=== PATIENT | male | born 1960 | race Caucasian/White ===

== ENCOUNTER 2022-02-04 22:23 | Emergency (ER) | payer MEDICAID, SELFPAY ==
[2022-02-04 22:24] VITALS: BP 193/101; PULSE 90; RESP 16; TEMP 36.7; O2SAT 98; BMI 26.6
--- NOTE | 2022-02-04 22:36 | EKG12_ITS ---
Test Reason : [facility] [place] Pressure : / mmHG Vent. Rate : 093 BPM Atrial Rate : 093 BPM P-R Int : 134 ms QRS Dur : 086 ms QT Int : 338 ms P-R-T Axes : 078 074 057 degrees QTc Int : 420 ms Normal sinus rhythm Normal ECG Confirmed by ANIKA FRANZ, SCAR ([id number]), videotape editor OLGA SHARMA ([id number]) on 02/05/2022 11:39:01 AM Referred By: Confirmed By:SCAR DONALDSON MD
--- NOTE | 2022-02-04 22:40 | EDS_ITS ---
HPI HPI - Psych History of Present Illness Chief Complaint: Mental Health Informant: patient and EMS Narrative Narrative: 11-year-old male presenting to the emergency department with EMS voluntarily after expressing some homicidal ideation. Patient appears to have had some longstanding depression that has gone untreated. He lost his 10 years ago. He lost 3 of his brothers that he found . His daughter of a drug overdose about 2 months ago. Most recently somebody sent him a video of his girlfriend of 7 years having sex with a group of people while unresponsive from drug use. He made homicidal threats against that individual. The police made contact tonight and the patient admitted to using some methamphetamines earlier. He states that he is very tearful cannot calm himself down and needs help with his depression. PFSH PFSH Home Medications diazepam 2 mg tablet 5 mg PO TID PRN PRN Muscle Spasm ##10 05/30/14 [Rx Last T aken Unknown] naproxen 500 mg tablet 500 mg PO BID PRN ##20 05/30/14 [Rx Last Taken Unknown] oxycodone-acetaminophen 5 mg-325 mg tablet 1 - 2 tab PO Q4H PRN PRN Pain ##30 05/30/14 [Rx Last Taken Unknown] diazepam 2 mg tablet 2 mg PO TID PRN PRN Vertigo ##10 06/08/14 [Rx Last Taken Unknown] oxycodone-acetaminophen 10 mg-325 mg tablet (Percocet) 1 tab PO Q6H PRN PRN Pain ##20 06/08/14 [Rx Last Taken Unknown] oxycodone-acetaminophen 5 mg-325 mg tablet 1 - 2 tab PO Q4H PRN PRN Pain ##12 06/20/14 [Rx Last Taken Unknown] oxycodone-acetaminophen 5 mg-325 mg tablet 1 - 2 tab PO Q6H PRN PRN Pain ##12 08/27/13 [Rx Last Taken Unknown] naproxen 500 mg tablet 500 mg PO BID ##20 08/02/14 [Rx Last Taken Unknown] oxycodone-acetaminophen 5 mg-325 mg tablet 1 - 2 tab PO Q4H PRN PRN Pain ##20 08/02/14 [Rx Last Taken Unknown] Allergy/AdvReac Type Severity Reaction Status Date / Time morphine Allergy Other Verified 10/03/20 12:56 Social History (Updated 02/04/22 @ 22:[address] Loi Holt, DO) current gender identity: male Smoking Status: Never smoker substance use type: amphetamines ROS ROS ED Constitutional Constitutional ED: Denies chills or weight loss Eyes Eyes: Denies change in vision or diplopia ENT ENT ED: Denies ear pain, rhinorrhea or sore throat Cardiovascular Cardiovascular: Denies chest pain, orthopnea, palpitations or racing heartbeat Respiratory/Chest Respiratory/Chest: Denies cough, dyspnea or orthopnea Gastrointestinal Gastrointestinal: Denies abdominal pain, diarrhea, nausea or vomiting Genitourinary Genitourinary ED: Denies dysuria, hematuria or urinary frequency Musculoskeletal Musculoskeletal: Denies arthralgias or myalgias Integumentary Denies abscess or rash Neurologic Neurologic: Denies headache(s) or weakness Psychiatric Psychiatric: Reports depression and other Details: Homicidal thoughts ; Denies anxiety, suicidal ideation or suicidal thoughts Endocrine Endocrinology: Denies polydipsia, polyphagia or polyuria Allergic/Immunologic Allergic/Immunologic ED: Denies mouth swelling, tongue swelling or urticaria EXAM Physical Exam Const Vital Signs: 02/04/22 22:24 Temperature 98.1 F Temperature Source Temporal Pulse Rate 90 Respiratory Rate 16 Blood Pressure 193/101 H Blood Pressure Mean 131 Pulse Ox 98 Oxygen Delivery Method Room Air Positive well nourished and well developed General Appearance ED: well developed HEENT Reports normocephalic, head/scalp atraumatic and moist mucous membranes Eyes PERRL and EOMs intact bilaterally Neck no lymphadenopathy, supple and no JVD Resp normal respiratory effort and clear to auscultation bilaterally Cardio regular rate, regular rhythm and no murmurs GI normal to inspection, nondistended, normoactive bowel sounds and non-tender Palpation: soft Back/Spine no CVA tenderness and normal ROM Extremity normal to inspection General Extremety ED: Negative for edema General Extremity: Negative for edema Neuro oriented x3 and CN's II-XII intact bilaterally Sensorium / Orientation: alert Motor Exam: strength 5/5 throughout Psych mental status grossly normal Appearance: grossly normal Activity / Motor Behavior: avoids eye contact Speech: excessive, rapid and pressured Mood & Affect: depressed, sad and tearful Thought Process: perseverating Thought Content: No suicidality, homicidality, No delusion(s) and No hallucination(s) Attention / Concentration: attention grossly intact Memory / Cognition: memory grossly intact Insight: questionable Judgement: questionable Skin no rashes or lesions noted and no wounds MDM MDM MDM Narrative Medical decision making narrative: Patient will be medically cleared. We will have crisis evaluate the patient. EKG Initial EKG: Attestation: I personally reviewed and interpreted this EKG as follows: Comments: Normal sinus rhythm with a ventricular rate of 93 bpm. Discharge Plan Triage Chief Complaint: Mental Health ED Provider: Loi Holt Dx/Rx/DC Orders Clinical Impression: Methamphetamine use, Homicidal ideation, Depression Prescriptions: No Action oxycodone-acetaminophen 1 TABLET tablet 1 - 2 tab PO Q4H PRN PRN (Reason: Pain) Qty: 30 0RF diazepam 2 MG tablet 5 mg PO TID PRN PRN (Reason: Muscle Spasm) Qty: 10 0RF naproxen 500 MG tablet 500 mg PO BID PRN Qty: 20 0RF oxycodone-acetaminophen [Percocet] 1 EACH tablet 1 tab PO Q6H PRN PRN (Reason: Pain) Qty: 20 0RF diazepam 2 MG tablet 2 mg PO TID PRN PRN (Reason: Vertigo) Qty: 10 0RF oxycodone-acetaminophen 1 TABLET tablet 1 - 2 tab PO Q4H PRN PRN (Reason: Pain) Qty: 12 0RF oxycodone-acetaminophen 1 TABLET tablet 1 - 2 tab PO Q6H PRN PRN (Reason: Pain) Qty: 12 0RF Rx Instructions: causes drowsiness oxycodone-acetaminophen 1 TABLET tablet 1 - 2 tab PO Q4H PRN PRN (Reason: Pain) Qty: 20 0RF naproxen 500 MG tablet 500 mg PO BID Qty: 20 0RF Primary Care Provider: Care Physician,No Primary Referrals: Care Physician,No Primary [Primary Care Provider] -
[2022-02-04] MEDS: LORazepam 1 MG Tablet PO (22:50)
--- NOTE | 2022-02-04 22:54 | ED.RN ---
Patient refused to remove clothes and get in gown at this time. Explained to patient that it is our protocol even though he is not suicidal. Pt. states there is no need to remove my clothes, what are you going to do hold me down?. Will try again after ativan begins to work.
[2022-02-04 22:56] LABS: Absolute Lymphocyte Count 2.47 X10^3/uL (0.83-4.51); Absolute Neutrophil Count 4.4 X10^3/uL (2.0-7.7); Basophil# 0.06 X10^3/uL; Basophil% 0.8 % (0-1); Eosinophil# 0.05 X10^3/uL; Eosinophils% 0.7 % (0-5); Hematocrit 51.2 % (40-54); Hemoglobin 16.9 g/dL (13.0-16.5); Lymphocyte # 2.47 X10^3/ul (0.83-4.51); Lymphocyte % 32.4 % (19-41); Mean Corpuscular Hgb 29.2 pg (27.0-32.0); Mean Corpuscular Volume 88.6 fL (80-94); Mean Platelet Vol. 9.5 fl (6.2-12.0); Monocyte# 0.59 X10^3/uL; Monocyte% 7.7 % (0-10); NRBC Flagged by Analyzer 0 % (0-5); Neutrophil # 4.43 X10^3/uL (2.7-7.7); Neutrophil % 58.1 % (47-70); Platelet Count 335 K/mm3 (150-450); RBC Distribution Width CV 13.7 % (11.6-14.6); RBC Distribution Width SD 44.1 fl (35.1-43.9); Red Blood Count 5.78 M/mm3 (4.6-6.2); White Blood Count 7.6 K/mm3 (4.4-11.0)
[2022-02-04 23:13] LABS: ALB/GLOB Ratio 1.2 RATIO (0.9-2.4); AST(SGOT) 18 U/L (15-37); Alanine Aminotransfer ALT/SGPT 39 U/L (16-61); Albumin, Serum 4.4 g/dL (3.2-5.0); Alkaline Phosphatase 75 U/L (45-117); Anion Gap 7 (5-15); BUN 15 mg/dL (7-18); BUN/Creat Ratio 14.6 RATIO (10-20); Calcium,Total 9.2 mg/dL (8.5-10.1); Chloride 105 mmol/L (98-107); Creatinine, Serum 1.03 mg/dL (0.70-1.30); EST Glomerular Filtration Rate 78 mL/min (>60); Est Glom Filt Rate - Afr Amer 95 mL/min (>60); Estimated Creatinine Clearance 84.76 ml/min; Globulin 3.8 g/dL (2.2-4.2); Glucose 100 mg/dL (74-106); Potassium 3.5 mmol/L (3.5-5.1); Protein, Total 8.2 g/dL (6.4-8.2); Sodium Level 138 mmol/L (136-145)
[2022-02-04 23:34] LABS: Amphetamine Urine VISTA POSITIVE (<1000 ng/mL); Barbiturate Urine VISTA NEGATIVE (< 200 ng/mL); Benzodiazepine Urine VISTA NEGATIVE (< 200 ng/mL); Cocaine Urine VISTA NEGATIVE (< 300 ng/mL); Ecstacy Urine VISTA POSITIVE (< 500 ng/mL); Methadone Urine VISTA NEGATIVE (< 300 ng/mL); PCP Urine VISTA NEGATIVE (< 25 ng/mL); THC Urine VISTA POSITIVE (< 50 ng/mL); Vista UDS pH Range 4
--- NOTE | 2022-02-05 01:09 | NURSING ---
CRISIS CALLED AT 0107
== END 2022-02-05 02:57 | disposition home or self-care (01) ==
PROVIDERS: Emergency Provider Emergency Medicine; Visit Provider Emergency Medicine
DX: F15.90 Other stimulant use, unspecified, uncomplicated (principal); F32.A Depression, unspecified; R45.850 Homicidal ideations
CPT/HCPCS: 80053; 80307; 82077; 85025; 93005; 99285

== ENCOUNTER 2022-02-26 17:33 | Emergency (ER) | payer MEDICARE, MEDICAID, SELFPAY ==
[2022-02-26 17:33] VITALS: BP 143/100; PULSE 94; RESP 17; TEMP 36.5; O2SAT 100; BMI 26.6
--- NOTE | 2022-02-26 18:01 | US_ITS ---
STUDY: SCROTUM ULTRASOUND REASON FOR EXAM: Male, 62 years old. right testicular pain and swelling TECHNIQUE: Ultrasound evaluation of the scrotum was performed with color Doppler and static duron-scale imaging. COMPARISON: None. FINDINGS: RIGHT TESTICLE INTRATESTICULAR: There is a normal size of the right testicle. The right testicle measures 4.6 x 3.4 x 2.4 cm. There is mild heterogeneous echotexture. There is normal arterial and normal venous vascularity. There is no demonstrated right testicular mass or cyst. EXTRATESTICULAR: The epididymis is normal in size. The epididymis head measures 1.4 x 0.7 x 0.6 cm. There is normal vascularity of the epididymis. There is no demonstrated epididymal cystic structure. There is no demonstrated hydrocele. There is no demonstrated varicocele. There is no demonstrated extratesticular mass or cyst. Right scrotal wall 0.3 cm. LEFT TESTICLE INTRATESTICULAR: There is a normal size of the left testicle. The left testicle measures 4.6 x 3.3 x 2.1 cm. There is a homogenous echotexture. There is normal arterial and normal venous vascularity. There is no demonstrated left testicular mass or cyst. EXTRATESTICULAR: The epididymis is normal in size. The epididymis head measures 1.0 x 0.8 x 0.8 cm cm. There is normal vascularity of the epididymis. There is epididymal cyst 0.3 x 0.3 x 0.2 cm. There is a small demonstrated hydrocele. There is no demonstrated varicocele. There is no demonstrated extratesticular mass or cyst. Left scrotal wall 0.3 cm. In the lower abdominal wall on the right there are findings raising question of abdominal wall hernia. US/Testicular with Arterial Flow IMPRESSION: Mild heterogeneity of the right testis which could represent orchitis. Left epididymal cyst 0.3 x 0.3 x 0.2 cm. Question right lower abdominal wall hernia. This can be further evaluated with CT examination if clinically warranted. Small left hydrocele. Electronically Signed: John Crum MD, BHARGAVI at 19:20 EDT ,
[2022-02-26 18:27] LABS: Red Blood Cells-Urine 0 SEEN /hpf (0-5); White Blood Cells 0 SEEN /hpf (0-5)
[2022-02-26 18:30] LABS: Color, Urine Yellow (Yellow); Glucose, Dipstick Normal (Normal); Ketone-Dipstick 5 mg/dl (Negative); Leukocyte Esterase-Dipstick Negative /ul (Negative); Nitrite-Dipstick Negative (Negative); Occult Blood-Urine Negative /ul (Negative); Protein-Dipstick 30 mg/dl (Negative); Specific Gravity, Urine 1.025 (1.002-1.030); Urine Bilirubin Dipstick Negative (Negative); Urine Clarity Clear (Clear); Urine Urobilinogen Normal (Normal)
[2022-02-26] MEDS: HYDROmorphone 1 MG/ML Syringe IV (18:33)
[2022-02-26 18:36] LABS: Absolute Lymphocyte Count 2.43 X10^3/uL (0.83-4.51); Absolute Neutrophil Count 2.4 X10^3/uL (2.0-7.7); Basophil# 0.03 X10^3/uL; Basophil% 0.6 % (0-1); Eosinophil# 0.04 X10^3/uL; Eosinophils% 0.7 % (0-5); Hematocrit 45.7 % (40-54); Hemoglobin 15.3 g/dL (13.0-16.5); Lymphocyte # 2.43 X10^3/ul (0.83-4.51); Lymphocyte % 45.4 % (19-41); Mean Corp Hgb Conc 33.5 g/dL (32-36); Mean Corpuscular Hgb 29.3 pg (27.0-32.0); Mean Corpuscular Volume 87.4 fL (80-94); Mean Platelet Vol. 9.2 fl (6.2-12.0); Monocyte# 0.47 X10^3/uL; Monocyte% 8.8 % (0-10); NRBC Flagged by Analyzer 0 % (0-5); Neutrophil # 2.38 X10^3/uL (2.7-7.7); Neutrophil % 44.5 % (47-70); Platelet Count 275 K/mm3 (150-450); RBC Distribution Width CV 13.7 % (11.6-14.6); RBC Distribution Width SD 43.8 fl (35.1-43.9); Red Blood Count 5.23 M/mm3 (4.6-6.2); White Blood Count 5.4 K/mm3 (4.4-11.0)
[2022-02-26 18:48] LABS: Bacteria 1+ /hpf (None Seen); Squamous Epithelial Cells - UA 0-5 SEEN /hpf (0-5)
[2022-02-26 18:49] LABS: Mucous, Urine 4+ /hpf (<or=2+)
[2022-02-26 18:49] LABS: Anion Gap 7 (5-15); BUN 13 mg/dL (7-18); BUN/Creat Ratio 12.6 RATIO (10-20); Calcium,Total 8.9 mg/dL (8.5-10.1); Chloride 106 mmol/L (98-107); Creatinine, Serum 1.03 mg/dL (0.70-1.30); EST Glomerular Filtration Rate 78 mL/min (>60); Est Glom Filt Rate - Afr Amer 95 mL/min (>60); Estimated Creatinine Clearance 83.71 ml/min; Glucose 105 mg/dL (74-106); Potassium 3.5 mmol/L (3.5-5.1); Sodium Level 138 mmol/L (136-145)
[2022-02-26 19:02] LABS: Lactic Acid 0.9 mmol/L (0.4-1.9)
--- NOTE | 2022-02-26 19:24 | CT_ITS ---
STUDY: CT Abdomen And Pelvis W/ Contrast Injection 02/26/2022 7:58 PM REASON FOR EXAM: Male, 62 years old. Abdominal pain lower abdominal wall hernia/pain, right Individualized dose optimization techniques were used for this CT. COMPARISON: None. TECHNIQUE: CT Abdomen And Pelvis W/ Contrast Injection IV 100mL [id number]-300 FINDINGS: There are atherosclerotic calcifications of visualized coronary arteries. The visualized portions of the heart are within normal limits. There multiple enhancing mass in the liver. This is likely a hemangioma. However, other etiologies are not excluded. Normal gallbladder and extrahepatic biliary system. Normal spleen. Normal pancreas. Normal bilateral adrenal glands. No acute findings of the right kidney. There are hypodensities in the left kidney. These are consistent for cysts. No follow up required. Normal visualized stomach. Normal small intestine. Stool throughout the colon. The appendix is visualized and appears normal. There are calcifications of the abdominal aorta. This is consistent for atherosclerotic disease. There is NO abdominal aortic aneurysm. Vascular workup can be obtained based on clinical correlation. Normal inferior vena cava. Subcentimeter mesenteric lymph nodes. Normal urinary bladder. There is enlargement of the prostate gland. There is a right inguinal hernia containing fat. There is no bowel involvement. There is no incarceration. There is no findings suggesting that this is causing a bowel obstruction. There is an umbilical hernia containing fat. There are diffuse degenerative changes of the visualized lumbar spine. CT/Abdomen/Pelvis W IV Cont ONLY IMPRESSION: (NOT LISTED IN ORDER OF SIGNIFICANCE) There is a right inguinal hernia containing fat. There is no bowel involvement. There is no incarceration. There is no findings suggesting that this is causing a bowel obstruction. There are no acute findings. There multiple enhancing mass in the liver. This is likely a hemangioma. However, other etiologies are not excluded. ACR White Paper guidelines (Nadine et al. JACR 2017; 14(11):3663-3327.) suggest the following. For patients with low risk of malignancy, recommend hepatic MR. For patients with high risk of malignancy (known malignancy with a propensity to metastasize to the liver, cirrhosis, and/or other hepatic risk factors), recommend hepatic MR or core biopsy. Other findings as above. Electronically Signed: Mike Li MD at 20:01 EDT ,
[2022-02-26] MEDS: HYDROmorphone 0.5 MG/0.5 ML SYRINGE IV (19:58)
[2022-02-26] MEDS: levoFLOXacin 750 MG Tablet PO (19:59)
--- NOTE | 2022-02-26 20:20 | EDS_ITS ---
HPI History of Present Illness Chief Complaint: Male Pain/Injury Informant: patient Related History Sexually: Active and Multiple Partners Narrative Narrative: Patient is a 62-year-old male presenting with 1 week of worsening right groin and testicular pain and swelling. He states he describes as a stinging and burning sensation. Denies any pain with urination. Denies any penile discharge. Has had a new sexual partner and states it is possible he could have an STD. Notes he had something similar about 15 years ago where his right testicle swell up to the size of a coconut. He was seen at [facility]. He does not remember what happened to treat it but it did get better. Also notes that he has a pain and swelling in his lower abdomen/pelvic region that is also painful. No other complaints at this time. Denies any difficulty with bowel movements. PFSH PFSH Home Medications levofloxacin 750 mg tablet 750 mg PO DAILY #10 tabs 02/26/22 [Rx Last Taken Unknown] oxycodone-acetaminophen 5 mg-325 mg tablet (Percocet) 1 tab PO Q6H PRN pain 3 days #12 tabs 02/26/22 [Rx Last Taken Unknown] Allergy/AdvReac Type Severity Reaction Status Date / Time codeine Allergy PT UNSURE Verified 02/26/22 17:47 OF REACTION morphine Allergy Other Verified 02/26/22 17:36 aspirin [ASA] AdvReac PT UNSURE Verified 02/26/22 17:36 OF REACTION Surgical History History of surgery on left wrist Social History Smoking Status: Never smoker substance use type: amphetamines ROS ROS ED Constitutional Constitutional ED: Denies chills or fever(s) Eyes Eyes: Denies change in vision ENT ENT ED: Denies rhinorrhea or sore throat Cardiovascular Cardiovascular: Denies chest pain Respiratory/Chest Respiratory/Chest: Denies cough Gastrointestinal Gastrointestinal: Reports abdominal pain; Denies nausea or vomiting Genitourinary Genitourinary ED: Reports testicular swelling and other Details: Right testicular pain and swelling ; Denies dysuria, hematuria or urinary frequency Musculoskeletal Musculoskeletal: Denies arthralgias or myalgias Integumentary Denies rash Neurologic Neurologic: Denies headache(s) or weakness Psychiatric Psychiatric: Denies anxiety Hematologic/Lymphatic Hematologic/Lymphatic: Denies easy bleeding or easy bruising EXAM Physical Exam Const Vital Signs: 02/26/22 17:33 02/26/22 20:59 02/26/22 20:59 Temperature 97.7 F L Temperature Source Temporal Pulse Rate 94 76 76 Respiratory Rate 17 16 16 Blood Pressure 143/100 H Blood Pressure Mean 114 Pulse Ox 100 99 99 Oxygen Delivery Method Room Air Positive well nourished and well developed Constitutional Narrative: Uncomfortable appearing. Walking hunched over and slightly waddling General Appearance ED: well developed HEENT Reports moist mucous membranes normocephalic and atraumatic Eyes PERRL and EOMs intact bilaterally Neck supple Resp normal respiratory effort and clear to auscultation bilaterally Cardio regular rate, regular rhythm and no murmurs GI non-tender, non-distended and no masses no CVA tenderness Penis: normal penis and uncircumcised Meatus: Negative for meatal discharge Scrotum: testes descended bilaterally, cremasteric reflex present, inguinal hernia right, tenderness and scrotal swelling; Negative for erythema Testes: testicular swelling right and testicular tenderness; Negative for high- riding testicle Back/Spine no CVA tenderness Extremity normal to inspection General Extremety ED: Negative for edema General Extremity: Negative for edema Neuro oriented x3 Motor Exam: no movement abnormalities noted Psych mental status grossly normal Skin Lesions: no lesions Rashes: no rashes MDM MDM MDM Narrative Medical decision making narrative: Patient is evaluated for 3 to 4 days of worsening right testicular pain. Patien t has swelling just proximal to his right groin that is tender but there is no overlying erythema. This is consistent with a hernia. In addition he has swelling and significant tenderness palpation of the right testicle. Urinalysis shows 1+ bacteria but is otherwise largely normal. CBC, CMP and lactate are normal. Testicular ultrasound shows a possible orchitis of the right testes. In addition there is a questionable lower abdominal wall hernia. Patient's physical exam and presentation is consistent orchitis and he is given Levaquin in the emergency room. Patient states he has a low suspicion for sexually transmitted infection. A CT of the abdomen pelvis obtained for further evaluation of this hernia. The area is now soft and reducible. Patient has bilateral inguinal hernias as well as several enhancing masses of the liver likely hemangiomas. Patient is informed of all of these findings and given referral for surgery, urology, GI (he has a history of hepatitis C and is inte rested in seeking treatment for this) and primary care. He is counseled on return precautions. He is counseled that there are masses on his liver which are possibly benign but need further evaluation with an MRI to definitively rule out any type of mass/cancer. Patient is given a short course of Percocet for his pain but is counseled on the risk of addiction especially given his prior heroin abuse. Patient discharged home in improved and stable condition. Lab Data Attestation: I reviewed the patient's lab results. Labs: Laboratory Results - last 24 hr 02/26/22 02/26/22 02/26/22 18:15 18:30 18:30 WBC 5.4 RBC 5.23 Hgb 15.3 Hct 45.7 MCV 87.4 MCH 29.3 MCHC 33.5 RDW Std Deviation 43.8 RDW Coeff of Eliezer 13.7 Plt Count 275 MPV 9.2 Immature Gran % (Auto) 0.000 Neut % (Auto) 44.5 L Lymph % (Auto) 45.4 H [place] % (Auto) 8.8 Eos % (Auto) 0.7 Baso % (Auto) 0.6 Absolute Neuts (auto) 2.4 Absolute Lymphs (auto) 2.43 Nucleated RBC % 0 Sodium 138 Potassium 3.5 Chloride 106 Carbon Dioxide 25.0 Anion Gap 7 BUN 13 Creatinine 1.03 Estim Creat Clear Calc 83.71 Est GFR (MDRD) Af Amer 95 Est GFR (MDRD) Non-Af 78 BUN/Creatinine Ratio 12.6 Glucose 105 Lactic Acid Calcium 8.9 Urine Color Yellow Urine Clarity Clear Urine pH 5.0 Ur Specific [place] 1.025 Urine Protein 30 H Urine Glucose (UA) Normal Urine Ketones 5 H Urine Occult Blood Negative Urine Nitrite Negative Urine Bilirubin Negative Urine Urobilinogen Normal Ur Leukocyte Esterase Negative Urine RBC 0 SEEN Urine WBC 0 SEEN Ur Squamous Epith Cells 0-5 SEEN Urine Bacteria 1+ Urine Mucus 4+ Chlam trachomat DNA PCR N.gonorrhoeae DNA (PCR) 02/26/22 02/26/22 18:30 19:45 WBC RBC Hgb Hct MCV MCH MCHC RDW Std Deviation RDW Coeff of Eliezer Plt Count MPV Immature Gran % (Auto) Neut % (Auto) Lymph % (Auto) [place] % (Auto) Eos % (Auto) Baso % (Auto) Absolute Neuts (auto) Absolute Lymphs (auto) Nucleated RBC % Sodium Potassium Chloride Carbon Dioxide Anion Gap BUN Creatinine Estim Creat Clear Calc Est GFR (MDRD) Af Amer Est GFR (MDRD) Non-Af BUN/Creatinine Ratio Glucose Lactic Acid 0.9 Calcium Urine Color Urine Clarity Urine pH Ur Specific [place] Urine Protein Urine Glucose (UA) Urine Ketones Urine Occult Blood Urine Nitrite Urine Bilirubin Urine Urobilinogen Ur Leukocyte Esterase Urine RBC Urine WBC Ur Squamous Epith Cells Urine Bacteria Urine Mucus Chlam trachomat DNA PCR Negative N.gonorrhoeae DNA (PCR) Negative Radiography Diagnostic Testing: Clinical Impression(s) from Imaging Studies Testicular Ultrasound 02/26/22 18:01 IMPRESSION: Mild heterogeneity of the right testis which could represent orchitis. Left epididymal cyst 0.3 x 0.3 x 0.2 cm. Question right lower abdominal wall hernia. This can be further evaluated with CT examination if clinically warranted. Small left hydrocele. Electronically Signed: John Crum MD, BHARGAVI at 19:20 EDT , Abdomen/Pelvis CT 02/26/22 19:24 IMPRESSION: (NOT LISTED IN ORDER OF SIGNIFICANCE) There is a right inguinal hernia containing fat. There is no bowel involvement. There is no incarceration. There is no findings suggesting that this is causing a bowel obstruction. There are no acute findings. There multiple enhancing mass in the liver. This is likely a hemangioma. However, other etiologies are not excluded. ACR White Paper guidelines (Nadine et al. JACR 2017; 14(11):6544-9303.) suggest the following. For patients with low risk of malignancy, recommend hepatic MR. For patients with high risk of malignancy (known malignancy with a propensity to metastasize to the liver, cirrhosis, and/or other hepatic risk factors), recommend hepatic MR or core biopsy. Other findings as above. Electronically Signed: Mike Li MD at 20:01 EDT , Discharge Plan Triage Chief Complaint: Male Pain/Injury Other Complaint: Other, Pain/Inj ED Provider: Nicole Fowler Dx/Rx/DC Orders Clinical Impression: Orchitis, right, Bilateral inguinal hernia, Abnormal CT scan Instructions: ED Hernia (Adult), ED Orchitis Prescriptions: New levofloxacin 750 mg tablet 750 mg PO DAILY Qty: 10 0RF oxycodone-acetaminophen [Percocet] 5-325 mg tablet 1 tab PO Q6H PRN (Reason: pain) 3 Days Qty: 12 0RF Primary Care Provider: Care Physician,No Primary Referrals: Adriano Ruiz MD [Med Staff - Active Staff] - 3-5 Days if not improving (for orchitis/testicular pain ) El Ohara MD [Med Staff - Active Staff] - As Needed (for inguinal hernia ) Kaleb Danielle DO [Med Staff - Active Staff] - As Needed (for Hepatitis C) Deidra Frank [Non-Staff] - As soon as possible Care Physician,No Primary [Primary Care Provider] - Activity Restrictions/Additional Instructions: Take the entire course of antibiotics. Be careful in taking oxycodone/Percocet as there is addiction potential. You may also take ibuprofen for pain. Your CT did show inguinal hernia on the right which is likely contributing to some of your pain. In addition you have a mass in your liver that is likely a hemangioma but we recommend follow-up with hepatic MRI. Please follow-up with your primary care doctor for this or GI physician. You been referred to the specialties today. Disposition Disposition: Home, Self Care Discharge Date/Time: 02/26/22 21:30
[2022-02-26 20:59] VITALS: PULSE 76; RESP 16; O2SAT 99
[2022-02-26 22:47] LABS: Chlamydia Trachomatis by PCR Negative (Negative); Neisserai gonorrhoeae by PCR Negative (Negative); Probe Check PASS; Sample Adequacy Control PASS; Specimen Processing Control PASS
== END 2022-02-26 21:30 | disposition home or self-care (01) ==
PROVIDERS: Emergency Provider Emergency Medicine; Visit Provider Emergency Medicine
DX: N45.2 Orchitis (principal); K40.20 Bilateral inguinal hernia, without obstruction or gangrene, not specified as recurrent; R93.2 Abnormal findings on diagnostic imaging of liver and biliary tract; Z20.2 Contact with and (suspected) exposure to infections with a predominantly sexual mode of transmission; B19.20 Unspecified viral hepatitis C without hepatic coma
CPT/HCPCS: 74177; 76870; 80048; 81001; 83605; 85025; 87086; 87088; 87491; 87591; 93976; 96374; 96376; 99285; Q9967; A4216

== ENCOUNTER 2022-03-10 18:10 | Emergency (ER) | payer MEDICARE, SELFPAY ==
[2022-03-10 18:11] VITALS: BP 150/101; PULSE 94; RESP 18; TEMP 36.1; O2SAT 100; BMI 27.1
--- NOTE | 2022-03-10 18:52 | EDS_ITS ---
HPI History of Present Illness Chief Complaint: Other, Pain/Inj Informant: patient Narrative Narrative: Patient is a poor informant IV duration of symptoms. But it sounds like he has had a hernia for at least a few months. He was seen here about 10 days ago. Di agnosed with a hernia. CAT scan was done. He has a follow-up appointment with surgery in 3 days. He states sometimes the hernia swells up and comes out and goes back if he lays down. Today he was feeling well. He went to move a shed and the hernia came out and it hurt. No nausea vomiting. No diarrhea or constipation. No fevers or chills. He has not tried to push it back in. He states he had oxycodone but he ran out. He would have taken 1. PFSH PFSH Home Medications levofloxacin 750 mg tablet 750 mg PO DAILY #10 tabs 02/26/22 [Rx Last Taken Unknown] oxycodone-acetaminophen 5 mg-325 mg tablet (Percocet) 1 tab PO Q6H PRN pain 3 days #12 tabs 02/26/22 [Rx Last Taken Unknown] oxycodone-acetaminophen 5 mg-325 mg tablet (Percocet) 1 tab PO Q6H PRN pain 3 days #10 tabs 03/10/22 [Rx Last Taken Unknown] Allergy/AdvReac Type Severity Reaction Status Date / Time codeine Allergy PT UNSURE Verified 03/10/22 18:10 OF REACTION morphine Allergy Other Verified 03/10/22 18:10 aspirin [ASA] AdvReac PT UNSURE Verified 03/10/22 18:10 OF REACTION Surgical History History of surgery on left wrist Social History Smoking Status: Never smoker substance use type: amphetamines ROS ROS ED Constitutional Constitutional ED: Denies fever(s) or subjective Eyes Eyes: Denies change in vision Cardiovascular Cardiovascular: Denies chest pain or palpitations Respiratory/Chest Respiratory/Chest: Denies cough or dyspnea Gastrointestinal Gastrointestinal: Reports abdominal pain; Denies constipation, diarrhea, melena, nausea or vomiting Genitourinary Genitourinary ED: Denies dysuria, hematuria or urinary frequency Musculoskeletal Musculoskeletal: Denies back pain Integumentary Denies rash Endocrine Endocrinology: Denies polydipsia or polyuria Hematologic/Lymphatic Hematologic/Lymphatic: Denies easy bleeding Allergic/Immunologic Allergic/Immunologic ED: Denies urticaria EXAM Physical Exam Const Vital Signs: 03/10/22 18:11 03/10/22 18:28 Temperature 97 F L Temperature Source Temporal Pulse Rate 94 Respiratory Rate 18 Respiratory Effort Normal Blood Pressure 150/101 H Blood Pressure Mean 117 Pulse Ox 100 Oxygen Delivery Method Room Air Positive well nourished and well developed General Appearance ED: well developed and NAD HEENT Reports moist mucous membranes; Denies dry mucous membranes Mouth ED: No dry mucous membranes Mouth: No dry mucous membranes Eyes General Eye ED: Negative for scleral icterus Chest Wall inspection of chest normal Resp normal respiratory effort Auscultation: Negative for rales, rhonchi or wheezes Cardio regular rate and regular rhythm GI normal to inspection, nondistended, normoactive bowel sounds, non-tender and non-distended GI Narrative: Abdomen itself is very benign. Bowel sounds are normal. No tenderness at all in the abdomen. Narrative: Penis and testicles are normal. He does have fullness in the right inguinal area. I can palpate a hernia there. It is easily reduced with the patient laying down. That helped his pain quite a bit. If I strain it comes out. When I have him lay back down it goes back in spontaneously within about 20 or 30 seconds. No hernia on the left side. Back/Spine no CVA tenderness Extremity normal to inspection General Extremety ED: Negative for tenderness Neuro Sensorium / Orientation: alert Psych mental status grossly normal MDM MDM MDM Narrative Medical decision making narrative: Since recheck. He feels good. Has been drinking fluids. Hernia is still in. He is comfortable going home. We went over again activity limitations including no lifting straining or bending. He will follow-up with the surgeon on the first Discharge Plan Triage Chief Complaint: Other, Pain/Inj ED Provider: Glynn Ortiz Dx/Rx/DC Orders Clinical Impression: Hernia, inguinal, right Instructions: ED Hernia (Adult) Prescriptions: New oxycodone-acetaminophen [Percocet] 5-325 mg tablet 1 tab PO Q6H PRN (Reason: pain) 3 Days Qty: 10 0RF No Action levofloxacin 750 mg tablet 750 mg PO DAILY Qty: 10 0RF oxycodone-acetaminophen [Percocet] 5-325 mg tablet 1 tab PO Q6H PRN (Reason: pain) 3 Days Qty: 12 0RF Primary Care Provider: Care Physician,No Primary Referrals: Care Physician,No Primary [Primary Care Provider] - Activity Restrictions/Additional Instructions: Follow-up with the surgeon as scheduled on 14 March. Disposition Disposition: Home, Self Care
[2022-03-10] MEDS: oxyCODONE 5 MG Tablet PO (19:09)
== END 2022-03-10 20:58 | disposition home or self-care (01) ==
PROVIDERS: Emergency Provider Emergency Medicine; Visit Provider Emergency Medicine
DX: K40.90 Unilateral inguinal hernia, without obstruction or gangrene, not specified as recurrent (principal)
CPT/HCPCS: 99283

== ENCOUNTER 2022-04-04 15:54 | Emergency (ER) | payer MEDICAID, SELFPAY ==
[2022-04-04 15:55] VITALS: BP 137/104; PULSE 105; RESP 18; TEMP 36.8; O2SAT 100; BMI 25.0
--- NOTE | 2022-04-04 16:29 | EDS_ITS ---
HPI History of Present Illness Chief Complaint: Abd Pain Narrative Narrative: 62-year-old male with history of right inguinal and right lower abdominal wall ventral hernia presenting with hernia pain around his ventral hernia. He states its been like this most of the day. He states that it does go in and out. He states that his hernia is actually bulged out much further than this. He has not tried to reduce it. Patient was seen here previously for similar complaint twice. He had an ultrasound and a CAT scan performed which showed a fat- containing inguinal hernia. Patient states he does not have anything for pain at home. He previously had Percocet. He cannot afford Tylenol or ibuprofen. He states is due to his living conditions. He has not been able to follow-up as an outpatient with Deidra Frank because he states he has been in and out of senior care over the last 10 days. He has an appointment for either tomorrow or the next day but he does not know which. Patient has not had constipation or diarrhea. No fever or chills. PFSH PFSH Home Medications naproxen 500 mg tablet (Naprosyn) 500 mg PO BID PRN pain #30 tabs 04/04/22 [Rx Last Taken Unknown] Allergy/AdvReac Type Severity Reaction Status Date / Time codeine Allergy PT UNSURE Verified 03/10/22 18:10 OF REACTION morphine Allergy Other Verified 04/04/22 16:03 aspirin [ASA] AdvReac PT UNSURE Verified 03/10/22 18:10 OF REACTION Surgical History History of surgery on left wrist Social History Smoking Status: Never smoker substance use type: amphetamines ROS ROS ED Constitutional Constitutional ED: Denies chills or fever(s) Eyes Eyes: Denies change in vision ENT ENT ED: Denies rhinorrhea Cardiovascular Cardiovascular: Denies chest pain or palpitations Respiratory/Chest Respiratory/Chest: Denies cough or dyspnea Gastrointestinal Gastrointestinal: Reports abdominal pain and nausea Genitourinary Genitourinary ED: Denies dysuria Musculoskeletal Musculoskeletal: Denies arthralgias or back pain Integumentary Denies abscess or Abrasions Neurologic Neurologic: Denies headache(s) or paresthesias Psychiatric Psychiatric: Denies anxiety or depression EXAM Physical Exam Const Vital Signs: 04/04/22 15:55 Temperature 98.2 F Temperature Source Oral Pulse Rate 105 H Respiratory Rate 18 Blood Pressure 137/104 H Blood Pressure Mean 115 Pulse Ox 100 Oxygen Delivery Method Room Air Positive well nourished General Appearance ED: NAD; Negative for pallor HEENT Reports moist mucous membranes Eyes PERRL and EOMs intact bilaterally Chest Wall inspection of chest normal Resp normal respiratory effort and clear to auscultation bilaterally Cardio regular rate and regular rhythm GI GI Narrative: Easily reducible right lower abdominal ventral hernia. Auscultation: normoactive bowel sounds Palpation: soft Extremity normal to inspection Neuro oriented x3 and CN's II-XII intact bilaterally Sensorium / Orientation: alert Psych mental status grossly normal Skin no rashes or lesions noted and no wounds General Skin Exam: Negative for jaundice or pallor MDM MDM MDM Narrative Medical decision making narrative: Patient presents with pain where his previous hernia was diagnosed. He states he is not taken anything for pain because he ran out of the oxycodone and he cannot afford Tylenol or ibuprofen. He states his hernia has been out most of the day. He states that it does seem to come and go. He states its been larger than this in the past. On examination I can palpate this hernia in the right lower abdominal wall.. It was easily reducible with the patient in the supine position before even the medications were given. Patient tolerated this very well. I do not believe the patient needs blood work or imaging as he is already had a CAT scan and an ultrasound. He does not have any testicular pain today. There is no masses palpated within the testicle. I think the patient needs to follow-up with his surgeon. Patient reevaluated and doing well. He is sitting comfortably and stands. He states that every time he stands he goes out but is easily reducible. I recommended him that he make his appointment at the clinic tomorrow or the next day. He was also referred to Dr. Ohara previously. I did check an [facility] report and he is a 2 prescription for oxycodone 1 on 02/26/2022 and 1 on 03/11/2022. He has been lost to follow-up because he states he keeps having to go to senior care but is not clear why. I do not think more narcotics are appropriate. I urged him to make follow-up. Impression: 1. Reducible right lower abdominal wall ventral hernia Discharge Plan Triage Chief Complaint: Abd Pain ED Provider: Dat Nelson Dx/Rx/DC Orders Instructions: ED Hernia (Adult) Prescriptions: New naproxen [Naprosyn] 500 mg tablet 500 mg PO BID PRN (Reason: pain) Qty: 30 0RF Primary Care Provider: Care Physician,No Primary Referrals: Care Physician,No Primary [Primary Care Provider] - Disposition Disposition: Home, Self Care
[2022-04-04] MEDS: oxyCODONE 5 MG Tablet PO (16:45)
--- NOTE | 2022-04-04 16:58 | CM.ED ---
SW Note Referral Source: Case Find Referral Reason: No Primary Care Physician (PCP) SW reviewed chart and noted that patient has no PCP. SW provided patient with list of [facility] and [facility]ician List for reference. No other issues or concerns voiced at this time. SW remains available for any additional needs. Plan: Provided patient with PCP information Rachel SORIA
--- NOTE | 2022-04-04 18:00 | ED.RN ---
PT STATES HERNIA HAS POPPED BACK OUT
--- NOTE | 2022-04-04 18:30 | ED.RN ---
THIS RN IN TO DISCHARGE PATIENT. PT NOT IN ROOM BUT IN VENDING AREA. THIS RN TALKS WITH PT REGARDING FOLLOW-UP AND PRESCRIPTIONS. PT STATES WHAT IS HE GIVING ME FOR PAIN. PT TOLD THE PRESCRIPTION IS FOR NAPROSYN. PT STATES WELL THAT WONT DO SHIT, GUESS I'LL JUST BUY STREET DRUGS. PT THEN LEAVES
== END 2022-04-04 18:39 | disposition home or self-care (01) ==
PROVIDERS: Emergency Provider Student in an Organized Health Care Education/Training Program; Visit Provider Student in an Organized Health Care Education/Training Program
DX: K43.9 Ventral hernia without obstruction or gangrene (principal)
CPT/HCPCS: 99281; 99283

== ENCOUNTER 2022-05-04 17:14 | Emergency (ER) | payer MEDICAID, SELFPAY ==
[2022-05-04 17:15] VITALS: BP 155/105; PULSE 99; RESP 18; TEMP 37.1; O2SAT 98; BMI 26.9
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
--- NOTE | 2022-05-04 17:45 | RAD_ITS ---
STUDY: X-RAY - LEFT HAND REASON FOR EXAM: Male, 62 years old. injury TECHNIQUE: 3 view(s) of the hand. COMPARISON: None. FINDINGS: Normal radiocarpal articulation. Normal distal radioulnar joint. Postsurgical changes involving the distal radius with indwelling orthopedic hardware Normal visualized carpal bones. Normal carpal articulations Normal carpometacarpal articulation of the thumb. Normal second through fifth carpometacarpal joints. Normal metacarpi. Normal metacarpophalangeal joint of the thumb. Normal interphalangeal joint of the thumb. Normal proximal and distal phalanges of the thumb. Normal metacarpophalangeal joints of the second through fifth fingers. Normal proximal and distal interphalangeal joints of the second through fifth fingers. Normal phalanges of the second through fifth fingers. The soft tissue structures are unremarkable. RAD/Hand Min 3 Views IMPRESSION: Postsurgical changes of the distal radius otherwise normal x-ray examination of the hand. Electronically Signed: Deion Barron MD at 18:36 EDT ,
--- NOTE | 2022-05-04 17:45 | RAD_ITS ---
STUDY: X-RAY - LEFT ELBOW REASON FOR EXAM: Male, 62 years old. injury TECHNIQUE: 3 view(s) of the elbow. COMPARISON: None. FINDINGS: Normal visualized humerus, radius and ulna. Normal radiocapitellar and ulnotrochlear articulations. Small olecranon spur is noted The soft tissue structures are unremarkable. RAD/Elbow min 3 Views IMPRESSION: No evidence for acute fracture or dislocation. Electronically Signed: Deion Barron MD at 18:40 EDT ,
--- NOTE | 2022-05-04 17:45 | RAD_ITS ---
STUDY: X-RAY - LEFT KNEE REASON FOR EXAM: Male, 62 years old. injury TECHNIQUE: 4 view(s) of the knee. COMPARISON: None. FINDINGS: Normal visualized distal femur. Normal visualized proximal tibia and fibula. Normal proximal tibiofibular articulation. Mildly narrowed medial femorotibial compartment. Normal lateral femorotibial compartment. Mildly narrowed medial compartment of the patellofemoral articulation with small suprapatellar spur. The soft tissue structures are unremarkable. RAD/Knee 4 or More Views IMPRESSION: Moderate osteoarthritic changes. No acute fracture or dislocation Electronically Signed: Deion Barron MD at 18:36 EDT ,
[2022-05-04] MEDS: Ibuprofen 600 MG Tablet PO (17:58)
[2022-05-04] MEDS: Diphth,Pertuss(Acell),Tet Vac 0.5 ML Vial IM (17:59)
[2022-05-04] MEDS: HYDROcodone Bitartrate/Apap 5/325 Tablet PO (19:25)
== END 2022-05-04 19:47 | disposition home or self-care (01) ==
PROVIDERS: Emergency Provider Emergency Medicine; Visit Provider Emergency Medicine
DX: S60.222A Contusion of left hand, initial encounter (principal); S80.02XA Contusion of left knee, initial encounter; K40.90 Unilateral inguinal hernia, without obstruction or gangrene, not specified as recurrent; Z23 Encounter for immunization; Y00.XXXA Assault by blunt object, initial encounter
CPT/HCPCS: 73080; 73130; 73564; 90471; 90715; 99285

== ENCOUNTER 2022-06-10 15:03 | Emergency (ER) | payer MEDICAID, SELFPAY ==
[2022-06-10 15:04] VITALS: BP 169/112; PULSE 88; RESP 14; TEMP 36.3; O2SAT 99; BMI 27.1
--- NOTE | 2022-06-10 15:46 | EDS_ITS ---
HPI History of Present Illness Chief Complaint: Male Pain/Injury Detail of Chief Complaint: Right groin pain Informant: patient Pain Onset: Days Context: Gradual Onset Timing: Continuous Current Severity: Moderate Maximum Severity: Moderate Narrative Narrative: 62-year-old male states he has bilateral inguinal hernias. The one on the right has been more swollen and painful in the last week. Progressively worsened. He was seen at the [facility] in clinic today. They sent him over for further evaluation. He denies any vomiting. Prior similar symptoms: Yes Recent Illness/Hospitalization: No PFSH PFSH Medical History Hernia Home Medications hydrocodone-acetaminophen 5-325mg 5mg-325mg 1 tab PO Q4H PRN pain 3 days #10 tabs 06/10/22 [Rx Last Taken Unknown] Allergy/AdvReac Type Severity Reaction Status Date / Time codeine Allergy PT UNSURE Verified 06/10/22 15:03 OF REACTION morphine Allergy Other Verified 06/10/22 15:03 aspirin [ASA] AdvReac PT UNSURE Verified 06/10/22 15:03 OF REACTION Surgical History History of surgery on left wrist Social History Smoking Status: Never smoker substance use type: amphetamines ROS ROS ED ROS Narrative Denies recent illness. Review of Systems ROS Unobtainable: Denies due to encephalopathy Constitutional Constitutional ED: Denies chills or fever(s) Eyes Eyes: Denies blurry vision Cardiovascular Cardiovascular: Denies chest pain Respiratory/Chest Respiratory/Chest: Denies cough Gastrointestinal Gastrointestinal: Denies abdominal pain Genitourinary Genitourinary ED: Denies dysuria Musculoskeletal Musculoskeletal: Denies arthralgias Integumentary Denies abscess Neurologic Neurologic: Denies headache(s) Psychiatric Psychiatric: Denies anxiety Endocrine Endocrinology: Denies polydipsia Hematologic/Lymphatic Hematologic/Lymphatic: Denies easy bleeding Allergic/Immunologic Allergic/Immunologic ED: Denies mouth swelling or tongue swelling EXAM Physical Exam Narrative Exam Narrative: 62-year-old left male no acute distress. Vital signs stable afebrile. Complaining of right groin pain. At the [facility] identified EENT exam unremarked. Neck nontender. Lungs clear to auscultation bilaterally. Heart is regular rhythm no murmur. Abdomen soft nontender nondistended normal bowel sounds no peritoneal signs. Serum exam is patient is a large right inguinal hernia that is tender nonreproducible. Swelling of his right hemiscrotum. Left moving all 4 extremities. Neurologically is awake alert. Const Vital Signs: 06/10/22 15:04 Temperature 97.4 F L Temperature Source Temporal Pulse Rate 88 Respiratory Rate 14 Blood Pressure 169/112 H Blood Pressure Mean 131 Pulse Ox 99 Oxygen Delivery Method Room Air Positive well nourished and well developed; Negative for obese, cachectic, contractures or unkempt General Appearance ED: well developed and NAD; Negative for unkempt, cachectic, contractures or pallor Nutritional Appearance: Negative for cachectic or obese HEENT Reports moist mucous membranes and dry mucous membranes normocephalic; Negative for atraumatic, trauma or tenderness Mouth ED: Yes dry mucous membranes Mouth: dry mucous membranes Eyes PERRL and EOMs intact bilaterally General Eye ED: Negative for pale conjunctiva or scleral icterus Neck no lymphadenopathy, supple and no JVD General: Negative for tenderness Resp normal respiratory effort and clear to auscultation bilaterally Effort and Inspection: Negative for retractions Auscultation: Negative for rales, rhonchi or wheezes Cardio regular rate, regular rhythm, S1 normal heart sound, S2 normal heart sound and no murmurs Rate: Negative for bradycardia Rhythm: Negative for abnormal rhythm Heart Sounds: Negative for other GI non-tender, non-distended and no masses Inspection: Negative for abdominal distention Auscultation: normoactive bowel sounds Palpation: Negative for soft or tender Narrative: Large right inguinal hernia. Tender. Swollen right hemiscrotum. I am unable to reduce the hernia. Bladder / Kidney Exam: No CVA tenderness Groin / Perineum Exam: Negative for edema Extremity normal to inspection General Extremety ED: Negative for edema General Extremity: Negative for edema Neuro oriented x3, CN's II-XII intact bilaterally, moves all extremities and no focal motor deficits Psych mental status grossly normal Appearance: Negative for unkempt Attitude: No agitated Mood & Affect: Negative for depressed or anxious Thought Process: normal thought process Thought Content: normal thought content Skin General Skin Exam: Negative for jaundice or pallor Lesions: no lesions Rashes: no rashes Trauma: Negative for abrasion MDM MDM MDM Narrative Medical decision making narrative: 62-year-old male with a large right inguinal hernia that appears to be incarcerated. He has significant pain. I am unable to reduce it. He will be placed in Trendelenburg with ice pack. Given pain meds. IV started. Have already spoken to general surgery Dr. Reynold Bahena who is coming into evaluate the patient to see if he can reduce this or if he needs to be taken to the operating room. Patient is aware of the plan. Repeat exam patient is doing well at 4:40 PM. He was placed in Trendelenburg with an ice pack on his right groin. His right inguinal hernia spontaneously reduced. Dr. Reynold stanton general surgery is in the room. Patient's abdomen is benign. He will be discharged home with outpatient follow-up with Dr. Stanton this week to be scheduled for an elective outpatient hernia repair. Patient knows return if increasing pain, distended abdomen or vomiting. Lab Data Attestation: I reviewed the patient's lab results. Lab results narrative: CBC shows a white count of 7. H&H 15 and 45. Labs: Laboratory Results - last 24 hr 06/10/22 16:10 WBC 7.6 RBC 5.12 Hgb 15.1 Hct 45.2 MCV 88.3 MCH 29.5 MCHC 33.4 RDW Std Deviation 44.6 H RDW Coeff of Eliezer 13.8 Plt Count 267 MPV 9.5 Immature Gran % (Auto) 0.800 Neut % (Auto) 53.3 Lymph % (Auto) 34.5 [place] % (Auto) 8.1 Eos % (Auto) 2.2 Baso % (Auto) 1.1 H Absolute Neuts (auto) 4.0 Absolute Lymphs (auto) 2.61 Nucleated RBC % 0 Discharge Plan Triage Chief Complaint: Male Pain/Injury ED Provider: Kojo Lujan Dx/Rx/DC Orders Clinical Impression: Hernia, inguinal, right, Incarcerated hernia Instructions: Hernia Repair Surgery Prescriptions: New hydrocodone-acetaminophen 5-325 mg tablet 1 tab PO Q4H PRN (Reason: pain) 3 Days Qty: 10 0RF Primary Care Provider: Deidra Frank Referrals: Reynold Bo MD [Med Staff - Active Staff] - As soon as possible (Call his office tomorrow morning to get set up to be seen this week if possible. He was scheduled to get surgery soon as possible but needs to see you in the office first.) Deidra Frank [Primary Care Provider] - Activity Restrictions/Additional Instructions: Motrin or [place] for pain. If the hernia comes back down he needs to push it back in. Lay flat on your back. Put ice on the area. And push it back in. If the pain gets a lot worse, you have vomiting or distended abdomen you need to return. Call and follow-up with Dr. Bo, the general surgeon that came in to see you today to get this fixed as soon as possible. Disposition Disposition: Home, Self Care
[2022-06-10] MEDS: Morphine 4 MG/ML Syringe 6 MG IV (16:04)
[2022-06-10] MEDS: Ondansetron 4 MG/2 ML Vial IV (16:04)
[2022-06-10 16:23] LABS: Absolute Lymphocyte Count 2.61 X10^3/uL (0.83-4.51); Basophil# 0.08 X10^3/uL; Basophil% 1.1 % (0-1); Eosinophil# 0.17 X10^3/uL; Eosinophils% 2.2 % (0-5); Hematocrit 45.2 % (40-54); Hemoglobin 15.1 g/dL (13.0-16.5); Lymphocyte # 2.61 X10^3/ul (0.83-4.51); Lymphocyte % 34.5 % (19-41); Mean Corp Hgb Conc 33.4 g/dL (32-36); Mean Corpuscular Hgb 29.5 pg (27.0-32.0); Mean Corpuscular Volume 88.3 fL (80-94); Mean Platelet Vol. 9.5 fl (6.2-12.0); Monocyte# 0.61 X10^3/uL; Monocyte% 8.1 % (0-10); NRBC Flagged by Analyzer 0 % (0-5); Neutrophil # 4.03 X10^3/uL (2.7-7.7); Neutrophil % 53.3 % (47-70); Platelet Count 267 K/mm3 (150-450); RBC Distribution Width CV 13.8 % (11.6-14.6); RBC Distribution Width SD 44.6 fl (35.1-43.9); Red Blood Count 5.12 M/mm3 (4.6-6.2); White Blood Count 7.6 K/mm3 (4.4-11.0)
--- NOTE | 2022-06-10 16:45 | EX.PCM.CON.S ---
Assessment & Plan Assessment/Plan (1) Bilateral inguinal hernia: QUALIFIERS: Obstruction and gangrene presence: without obstruction or gangrene Recurrence: non-recurrent Qualified Code(s): K40.20 - Bilateral inguinal hernia, without obstruction or gangrene, not specified as recurrent PLAN: Patient is here with right larger than left inguinal hernia. By the time I was able to see him the patient's hernias had spontaneously reduced with Trendelenburg position. Patient does have bilateral inguinal hernias but it does not appear that they are incarcerated or causing bowel obstruction. I discussed bilateral hernia repair as an outpatient with him in detail. I discussed performing a robotic assisted laparoscopic bilateral inguinal hernia repair with mesh. I discussed the procedure in detail as well as the risks including but not limited to bleeding, infection, injury to other organs, chronic groin pain, recurrence. Patient understands all the risks and would like to proceed. I will have my office work on scheduling him for outpatient bilateral inguinal hernia repair as soon as possible. At this time the patient is not incarcerated or strangulated and shows no signs of bowel obstruction so we will have him discharged home. He will follow-up for surgery. Reynold Bo MD Pager: [facility] [address] [place] [address], [address] [place] [address] Office: HPI Consult Data Date of Consult: 06/10/22 HPI Narrative HPI Narrative: MELVIN DAVID, is a 62 M who presents with bilateral hernias with more pain on the right than left. The patient was seen in urgent care and they were concerned for varicocele and sent him here. Patient was found to have bilateral inguinal hernias. He says his right one is much more painful than the left but he does experience pain and bulging in the left. He says has been there for years and getting worse. [facility] Medical History Hernia Home Medications hydrocodone-acetaminophen 5-325mg 5mg-325mg 1 tab PO Q4H PRN pain 3 days #10 tabs 06/10/22 [Rx Last Taken Unknown] Allergy/AdvReac Type Severity Reaction Status Date / Time codeine Allergy PT UNSURE Verified 06/10/22 15:03 OF REACTION morphine Allergy Other Verified 06/10/22 15:03 aspirin [ASA] AdvReac PT UNSURE Verified 06/10/22 15:03 OF REACTION Surgical History History of surgery on left wrist Social History Smoking Status: Never smoker substance use type: amphetamines ROS Constitutional Constitutional: Denies anorexia, fatigue or fever(s) Eyes Eyes: Denies blurry vision ENT HEENT: Denies abnormal hearing Cardiovascular Cardiovascular: Denies chest pain Respiratory/Chest Respiratory/Chest: Denies cough Gastrointestinal Gastrointestinal: Reports abdominal pain; Denies change in bowel habits, constipation, diarrhea, melena or rectal bleeding Genitourinary Genitourinary: Denies change in urinary stream Integumentary Integumentary: Denies jaundice Neurologic Neurologic: Denies abnormal gait Psychiatric Psychiatric: Denies anxiety Hematologic/Lymphatic Hematologic/Lymphatic: Denies easy bleeding Physical Exam Const alert and oriented x3 HEENT normocephalic Eyes PERRL Resp normal respiratory effort Cardio Rate: regular rate Rhythm: regular rhythm GI soft to palpation Palpation: tender other (Right groin) Lab / Micro Data Result Diagrams: 06/10/22 16:10 06/10/22 16:10 Labs: Laboratory Results - last 24 hr 06/10/22 16:10: WBC 7.6, RBC 5.12, Hgb 15.1, Hct 45.2, MCV 88.3, MCH 29.5, MCHC 33.4, RDW Std Deviation 44.6 H, RDW Coeff of Eliezer 13.8, Plt Count 267, MPV 9.5, Immature Gran % (Auto) 0.800, Neut % (Auto) 53.3, Lymph % (Auto) 34.5, [place] % (Auto) 8.1, Eos % (Auto) 2.2, Baso % (Auto) 1.1 H, Absolute Neuts (auto) 4.0, Absolute Lymphs (auto) 2.61, Nucleated RBC % 0
[2022-06-10 16:53] LABS: Anion Gap 5 (5-15); BUN 12 mg/dL (7-18); BUN/Creat Ratio 13.2 RATIO (10-20); Calcium,Total 8.9 mg/dL (8.5-10.1); Chloride 104 mmol/L (98-107); Creatinine, Serum 0.91 mg/dL (0.70-1.30); EST Glomerular Filtration Rate 90 mL/min (>60); Est Glom Filt Rate - Afr Amer 109 mL/min (>60); Estimated Creatinine Clearance 94.75 ml/min; Glucose 95 mg/dL (74-106); Potassium 4.2 mmol/L (3.5-5.1); Sodium Level 138 mmol/L (136-145)
[2022-06-10 16:56] VITALS: BP 142/79; PULSE 68; RESP 15; O2SAT 98
== END 2022-06-10 16:57 | disposition home or self-care (01) ==
PROVIDERS: Emergency Provider Emergency Medicine; Visit Provider Emergency Medicine
DX: K40.40 Unilateral inguinal hernia, with gangrene, not specified as recurrent (principal)
CPT/HCPCS: 80048; 85025; 96374; 96375; 99282; A4216; J2405

== ENCOUNTER 2022-06-14 11:45 | Day surgery (SDC) | payer MEDICAID, SELFPAY ==
[2022-06-14] VITALS (12 sets, daily range): BP systolic 119–159; BP diastolic 82–104; PULSE 61–97; RESP 16; TEMP 36–36.6; O2SAT 96–100; BMI 26.9
[2022-06-14] MEDS: Lactated Ringers 1,000 ML 15 ML IV (11:55)
--- NOTE | 2022-06-14 12:23 | HP.PCM_ITS ---
History and Physical Date of Admission: 06/14/22 HPI Consult Data Date of Consult: 06/10/22 HPI Narrative HPI Narrative: MELVIN DAVID, is a 62 M who presents with bilateral hernias with more pain on the right than left.? The patient was seen in urgent care and they were concerned for varicocele and sent him here.? Patient was found to have bilateral inguinal hernias.? He says his right one is much more painful than the left but he does experience pain and bulging in the left.? He says has been there for years and getting worse. PFSH Medical History? Hernia Home Medications hydrocodone-acetaminophen 5-325mg 5mg-325mg 1 tab PO Q4H PRN pain 3 days #10 tabs 06/10/22 [Rx Last Taken Unknown] Allergy/AdvReac Type Severity Reaction Status Date / Time codeine Allergy ? PT UNSURE Verified 06/10/22 15:03 ? ? ? OF REACTION ? ? morphine Allergy ? Other Verified 06/10/22 15:03 aspirin [ASA] AdvReac ? PT UNSURE Verified 06/10/22 15:03 ? ? ? OF REACTION ? ? Surgical History? History of surgery on left wrist Social History? Smoking Status:? Never smoker substance use type:? amphetamines ROS Constitutional Constitutional: Denies anorexia, fatigue or fever(s) Eyes Eyes: Denies blurry vision ENT HEENT: Denies abnormal hearing Cardiovascular Cardiovascular: Denies chest pain Respiratory/Chest Respiratory/Chest: Denies cough Gastrointestinal Gastrointestinal: Reports abdominal pain; Denies change in bowel habits, constipation, diarrhea, melena or rectal bleeding Genitourinary Genitourinary: Denies change in urinary stream Integumentary Integumentary: Denies jaundice Neurologic Neurologic: Denies abnormal gait Psychiatric Psychiatric: Denies anxiety Hematologic/Lymphatic Hematologic/Lymphatic: Denies easy bleeding Physical Exam Const alert and oriented x3 HEENT normocephalic Eyes PERRL Resp normal respiratory effort Cardio Rate: regular rate Rhythm: regular rhythm GI soft to palpation Palpation: tender other (Right groin) Lab / Micro Data Result Diagrams: 06/10/22 16:10? 06/10/22 16:10? Labs: Laboratory Results - last 24 hr 06/10/22 16:10:?WBC 7.6, RBC 5.12, Hgb 15.1, Hct 45.2, MCV 88.3, MCH 29.5, MCHC 33.4,?RDW Std Deviation 44.6 H, RDW Coeff of Eliezer 13.8, Plt Count 267, MPV 9.5, Immature Gran % (Auto) 0.800, Neut % (Auto) 53.3, Lymph % (Auto) 34.5, [place] % (Auto) 8.1, Eos % (Auto) 2.2,?Baso % (Auto) 1.1 H, Absolute Neuts (auto) 4.0, Absolute Lymphs (auto) 2.61, Nucleated RBC % 0 Assessment & Plan Assessment/Plan (1) Bilateral inguinal hernia: QUALIFIERS: ?Obstruction and gangrene presence:?without obstruction or gangrene??Recurrence:?non-recurrent? Qualified Code(s):?K40.20 - Bilateral inguinal hernia, without obstruction or gangrene, not specified as recurrent PLAN: Patient is here with right larger than left inguinal hernia.? By the time I was able to see him the patient's hernias had spontaneously reduced with Trendelenburg position.? Patient does have bilateral inguinal hernias but it does not appear that they are incarcerated or causing bowel obstruction.? I discussed bilateral hernia repair as an outpatient with him in detail.? I discussed performing a robotic assisted laparoscopic bilateral inguinal hernia repair with mesh.? I discussed the procedure in detail as well as the risks including but not limited to bleeding, infection, injury to other organs, chronic groin pain, recurrence.? Patient understands all the risks and would like to proceed.? I will have my office work on scheduling him for outpatient bilateral inguinal hernia repair as soon as possible.? At this time the patient is not incarcerated or strangulated and shows no signs of bowel obstruction so we will have him discharged home.? He will follow-up for surgery. Reynold Bo MD Pager: [facility] [address] [place] [address], [address] [place] [phone] Office: I have examined the patient and the H&P has been reviewed. There are no clinical changes since date of exam.
[2022-06-14] MEDS: Cefazolin 2 GM in 0.9% Normal Saline 100 ML IV (13:08)
[2022-06-14] MEDS: Bupivacaine Mpf 0.5% 30 ML VIAL (14:23)
--- NOTE | 2022-06-14 14:24 | PCM.OPRPT ---
Report of Operation Date of Procedure: 06/14/22 Pre-Operative Diagnosis: Bilateral inguinal hernias Post-Operative Diagnosis: Indirect right inguinal hernia Surgery/Procedure Performed:: Robotic assisted laparoscopic right inguinal hernia repair with mesh Description of Procedure: Patient was brought back to the operating room and general anesthesia was induced. The abdomen was prepped and draped in usual sterile fashion. A midline incision was made superior to the umbilicus and the fascia was grasped and elevated and Veress needle was placed into the abdomen. A drop test was performed. The abdomen was insufflated 15 mmHg. The Veress needle was removed and the port was placed. The abdomen was inspected and there were no injuries from entry. Next the patient was placed in Trendelenburg position and under direct visualization a right lateral and left lateral 8 mm port were placed. Upon inspecting the pelvis the patient had an indirect right inguinal hernia with no hernia on the left inguinal region. The robot was docked. The decision was made to only repair the right side. The right inguinal peritoneum was incised using cautery scissors and dissection was carried inferiorly. The hernia sac was reduced and all of its adhesions were lysed and then a 10 x 15 cm ProGrip mesh was placed into the right inguinal region and unfolded over the hernia defect. It completely cover the defect with good overlap. Next the peritoneum was reapproximated using a running 3-0V lock suture completely covering the mesh. The patient had a very redundant hernia sac and I was concerned for bowel being able to go back through it and become incarcerated so the hernia sac was plicated and sutured to the adjacent peritoneum so that it was not able to invert. At the end of the case the mesh was completely covered by peritoneum. Next the robot was undocked and the patient was allowed to desufflate and the ports were removed. The incisions were injected with local anesthetic and closed with interrupted 4-0 Monocryl suture. Steri-Strips and bandages were applied. The scrotum was checked in the end the case contain both testicles. Patient was awoken and taken to PACU in stable condition tolerated procedure well. Grafts/Implants Used: 10 x 15 cm ProGrip mesh in the right groin Admit VTE Documentation VTE Mechan Device Prophylaxis: SCD's
--- NOTE | 2022-06-14 14:27 | EX.PCM.DISCH ---
Discharge Instructions Procedure Hernia Diet Discharge Diet: Light diet - advance as tolerated Activity Discharge Activity: May Not Drive (for 2-3 days or while taking narcotic pain meds.) and May Shower (with the bandage in place 1-2 days after surgery.) Lifting Restrictions: 20 pounds for 6 weeks. Additional Activity Instructions:: Climbing stairs is fine, walking is encouraged. Sitting in bed may be uncomfortable. Sitting up using your lateral muscles (sitting up sideways) is usually more comfortable. Do not drive, work heavy equipment of sign legal documents for 24 hours. If your hernia repair was an inguinal repair, you may have scrotal swelling, an ice pack and/or athletic support can provide more comfort. Pain medications may cause nausea, you should typically eat light foods as you take your pain medications. Pain medications may also cause constipation. If you have difficulty with this, discuss with your doctor. Dressing / Incision Call your doctor if your incision/area has: Continuous Slow Oozing, Sudden Increased Bleeding, Increased Pain/ Swelling, Increased Redness and Foul Smelling Discharge Call your doctor if you observe: Fever of 101 or Higher Suture Line Care: Avoid Pulling/Pushing and Avoid Pinching/Bending Remove Dressing in: 2 days (Remove clear bandages in 2 days, remove Steri-Strips in 7 to 10 days.) Cleanse incision/area with: Soap & Water Follow Up Care Please Follow Up With: Reynold Bo MD When: Please call to schedule 2 week follow up appointment. [phone] Test Results: Test results from this visit will be discussed in further detail at your follow-up appointment, if applicable. Discharge Plan Admission Attending Provider: Reynold Bo Primary Care Provider: [facility] Deidra Flynn Instructions Additional Instructions / Restrictions: Ibuprofen and Tylenol alternating for pain. Oxycodone for breakthrough. Discharge Orders/Prescriptions Prescriptions: New oxycodone 5 mg tablet 5 - 10 mg PO Q6H PRN (Reason: pain) 5 Days Qty: 10 0RF No Action hydrocodone-acetaminophen 5-325 mg tablet 1 tab PO Q4H PRN (Reason: pain) 3 Days Qty: 10 0RF Referrals / Follow Up: [facility] Deidra Flynn [Primary Care Provider] - Disposition Disposition (needs filled in before D/C Order can be placed): Home, Self Care
== END 2022-06-14 18:57 | disposition home or self-care (01) ==
LOC: SDC 11:45 → AC 11:47
PROVIDERS: Visit Provider Surgery
PROC: (CPT 49650; principal; 2022-06-14 12:40)
DX: K40.20 Bilateral inguinal hernia, without obstruction or gangrene, not specified as recurrent (principal); M06.9 Rheumatoid arthritis, unspecified; Z79.82 Long term (current) use of aspirin
CPT/HCPCS: 49650; 00840; J7120; J2405